=== PATIENT | female | born 1940 | race Caucasian/White ===

== ENCOUNTER 2017-04-18 08:07 | Outpatient (CLI) | payer MEDICARE, BC | END 2017-04-18 08:08 | disposition home or self-care (01) | LOC: BICMAMMO 08:07 | PROVIDERS: ATTEND Internal Medicine | DX: Z12.31 Encounter for screening mammogram for malignant neoplasm of breast (principal); Z85.3 Personal history of malignant neoplasm of breast; Z80.3 Family history of malignant neoplasm of breast | CPT/HCPCS: 77063; 77067 ==

== ENCOUNTER 2017-11-21 11:24 | Outpatient (CLI) | payer MEDICARE, BC ==
--- NOTE | 2017-11-21 13:52 | ULT ---
ULTRASOUND RENAL BILATERAL STANDARD: HISTORY: Left flank pain. COMPARISON: Ultrasound renal 08/17/2016. FINDINGS: Real-time, rosas scale color evaluation of the kidneys was performed. The right kidney measures 9.6 x 6.2 x 5 cm and the left kidney measures 8.7 x 6.6 x 4.7 cm. Prevoid urinary bladder volume is 21.4 mL. No renal mass, hydronephrosis, or abnormal calcifications. IMPRESSION: Small bilateral kidneys. No evidence for obstructive uropathy. POS: [facility]
== END 2017-11-21 11:25 | disposition home or self-care (01) ==
LOC: SCSULT 11:24
PROVIDERS: ATTEND Internal Medicine
DX: R10.9 Unspecified abdominal pain (principal); N27.1 Small kidney, bilateral
CPT/HCPCS: 76770

== ENCOUNTER 2017-11-25 09:07 | Outpatient (CLI) | payer MEDICARE, BC ==
--- NOTE | 2017-11-25 10:14 | RAD ---
THORACIC SPINE 3 VIEWS: HISTORY: Left-sided anterior and lateral pain after breast for weeks, R10.9. FINDINGS: Multilevel thoracic spine disk-osteophytosis and spondylosis. No significant malalignment. No focal bone lesion. IMPRESSION: Thoracic spondylosis. POS: [facility]
== END 2017-11-25 09:08 | disposition home or self-care (01) ==
LOC: SCSRAD 09:07
PROVIDERS: ATTEND Internal Medicine
DX: R10.9 Unspecified abdominal pain (principal); M47.894 Other spondylosis, thoracic region
CPT/HCPCS: 72072

== ENCOUNTER 2017-12-08 15:08 | Outpatient (CLI) | payer MEDICARE, BC ==
--- NOTE | 2017-12-08 17:37 | MRI ---
MRI OF THE THORACIC SPINE WITHOUT CONTRAST: 12/08/17 COMPARISON: None. HISTORY: Left sided anterior and lateral pain under the breast area for months. Osteoarthritis of the thoracic spine. TECHNIQUE: Multiplanar and multisequence MRI images were obtained of the thoracic spine without contrast. FINDINGS: The vertebral bodies demonstrate normal height and alignment without fracture or subluxation. General ized desiccation and loss of intervertebral disc space height is seen. The visualized cord demonstrat es normal signal throughout. The prevertebral and paraspinal soft tissues are unremarkable. T1-2: Unremarkable. T2-3: Unremarkable. T3-4: Unremarkable. T4-5: A small central protrusion is seen. Mild central canal stenosis. No posterior facet arthrosis. Mild bilateral neural foraminal stenosis. T5-6: A small central protrusion is seen. No posterior facet arthrosis. Mild central canal stenosis. Mild left neural foraminal stenosis. T6-7: A moderate central protrusion is seen which impresses upon the anterior aspect of the cord. Mod erate central canal stenosis. No posterior facet arthrosis. Mild bilateral neural foraminal stenosis. T7-8: A very small central protrusion is seen. No posterior facet athrosis. Mild central canal stenos is. No neural foraminal stenosis. T8-9: A very small central protrusion is seen. No posterior facet arthrosis. Mild central canal steno sis. Mild right neural foraminal stenosis. No left neural foraminal stenosis. T9-10: A very small central protrusion is seen. No posterior facet arthrosis. Mild central canal sten osis. No neural foraminal stenosis. T10-11 through T12-L1: Unremarkable. IMPRESSION: Degenerative changes of the thoracic spine as above, greatest at T6-7. POS: [facility]
== END 2017-12-08 15:09 | disposition home or self-care (01) ==
LOC: SCSMRI 15:08
PROVIDERS: ATTEND Internal Medicine
DX: M47.24 Other spondylosis with radiculopathy, thoracic region (principal)
CPT/HCPCS: 72146

== ENCOUNTER 2018-07-04 12:54 | Outpatient (CLI) | payer MEDICARE, BC ==
--- NOTE | 2018-07-04 14:57 | BD ---
DEXA bone density scan: 07/04/2018 COMPARISON: None HISTORY: Postmenopausal female undergoing screening for osteoporosis. COMPARISON: None FINDINGS: L1--bone mineral density 1.289 g/sq cm; T score 2.7 L2--bone mineral density 1.369 g/sq cm; T score 3.1 L3--bone mineral density 1.392 g/sq cm; T score 2.8 L4--bone mineral density 1.259 g/sq cm; T score 2.1 Total L1-L4--bone mineral density 1.332 g/sq cm; T score 2.6 Left femoral neck--bone mineral density0.873 T score 0.2 Total proximal left femur--bone mineral density1.269 T score 2.7 FRAX - WHO fracture risk assessment tool is not reported as all T-Scores are at or above -1.0. IMPRESSION: Normal bone mineral density exam. Transcribed Date/Time: 07/04/2018 3:38 PM
--- NOTE | 2018-07-04 15:19 | MMO ---
Bilateral MAMMO Bilat Screen [facility]. CLINICAL HISTORY: Patient is 77 years old and is seen for screening. The patient has the following family history of breast cancer: mother, at age 50. 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 The patient has a history of left Lumpectomy in April, - malignant. VIEWS: The views performed were: bilateral craniocaudal with tomosynthesis; bilateral mediolateral oblique with tomosynthesis; and left craniocaudal. FILMS COMPARED: The present examination has been compared to prior imaging studies performed at [facility] on 08/12/2014, 02/21/2015, 04/16/2016 and 04/18/2017. MAMMOGRAM FINDINGS: There are scattered fibroglandular densities. Left breast: No suspicious mass or calcifications. Stable post treastment change. Right breast: There are no suspicious masses, calcifications or areas of architectural distortion. There are benign appearing calcifications in the right breast. There are no suspicious masses, suspicious calcifications, or new areas of architectural distortion. IMPRESSION: THERE IS NO MAMMOGRAPHIC EVIDENCE OF MALIGNANCY. A ROUTINE FOLLOW-UP MAMMOGRAM IN 1 YEAR IS RECOMMENDED. THE RESULTS OF THIS EXAM WERE SENT TO THE PATIENT. ACR BI-RADS Category 2 - Benign finding MAMMOGRAPHY NOTE: 1. A negative mammogram report should not delay a biopsy if a dominant of clinically suspicious mass is present. 2. Approximately 10% to 15% of breast cancers are not detected by mammography. 3. Adenosis and dense breasts may obscure an underlying neoplasm.
== END 2018-07-04 12:55 | disposition home or self-care (01) ==
LOC: BICMAMMO 12:54
PROVIDERS: ATTEND Internal Medicine
DX: Z13.31 Encounter for screening for depression (principal); Z13.820 Encounter for screening for osteoporosis; Z78.0 Asymptomatic menopausal state; Z80.3 Family history of malignant neoplasm of breast; Z85.3 Personal history of malignant neoplasm of breast; Z98.890 Other specified postprocedural states
CPT/HCPCS: 77063; 77067; 77080

== ENCOUNTER 2019-02-01 07:57 | Outpatient (CLI) | payer MEDICARE, BC ==
--- NOTE | 2019-02-01 08:26 | ULT ---
Abdominal Ultrasound: Multiple grayscale images of right upper quadrant obtained according to protocol. INDICATION: Pain FINDINGS: Liver: Normal Gallbladder: Cholelithiasis. Gallbladder wall: Normal. Foss's Sign: Negative Common bile duct is normal. Ascites: None Spleen: Unremarkable. Pancreas: Partially obscured by bowel content, limiting assessment. Kidneys: No acute abnormalities. Slight asymmetry of renal sizes, right renal leak documented at 11.2 cm, left renal length 9 cm. Aorta/IVC: No acute process. IMPRESSION: Cholelithiasis. No sonographic evidence of acute cholecystitis
== END 2019-02-01 07:58 | disposition home or self-care (01) ==
LOC: SCSULT 07:57 → BICULT 07:58
PROVIDERS: ATTEND Internal Medicine
DX: R11.11 Vomiting without nausea (principal); K80.20 Calculus of gallbladder without cholecystitis without obstruction
CPT/HCPCS: 93975

== ENCOUNTER 2019-07-19 08:19 | Outpatient (CLI) | payer MEDICARE, BC ==
--- NOTE | 2019-07-19 10:58 | MMO ---
Bilateral MAMMO Bilat Screen [facility]. CLINICAL HISTORY: Patient is 78 years old and is seen for screening. The patient has the following family history of breast cancer: mother, at age 50. The patient has a history of Excisional biopsy procedure revealed invasive ductal left breast carcinoma in April,; Stereotactic core biopsy procedure revealed invasive ductal left breast carcinoma in March, and malignant (generic) in the left breast in 2008. The patient has a history of left Lumpectomy in April, - malignant. VIEWS: The views performed were: bilateral craniocaudal with tomosynthesis and bilateral mediolateral oblique with tomosynthesis. FILMS COMPARED: The present examination has been compared to prior imaging studies performed at [facility] on 02/21/2015, 04/16/2016, 04/18/2017 and 07/04/2018. This study has been interpreted with the assistance of computer-aided detection. MAMMOGRAM FINDINGS: There are scattered fibroglandular densities. There are stable post operative changes seen in the left breast. There are no suspicious masses, suspicious calcifications, or new areas of architectural distortion. IMPRESSION: THERE IS NO MAMMOGRAPHIC EVIDENCE OF MALIGNANCY. A ROUTINE FOLLOW-UP MAMMOGRAM IN 1 YEAR IS RECOMMENDED. THE RESULTS OF THIS EXAM WERE SENT TO THE PATIENT. ACR BI-RADS Category 2 - Benign finding MAMMOGRAPHY NOTE: 1. A negative mammogram report should not delay a biopsy if a dominant of clinically suspicious mass is present. 2. Approximately 10% to 15% of breast cancers are not detected by mammography. 3. Adenosis and dense breasts may obscure an underlying neoplasm. Reported by: DELMY RAMÍREZ MD Electonically Signed: [id number]
== END 2019-07-19 08:20 | disposition home or self-care (01) ==
LOC: BICMAMMO 08:19
PROVIDERS: ATTEND Internal Medicine
DX: Z12.31 Encounter for screening mammogram for malignant neoplasm of breast (principal); Z80.3 Family history of malignant neoplasm of breast; Z85.3 Personal history of malignant neoplasm of breast; Z98.890 Other specified postprocedural states
CPT/HCPCS: 77063; 77067

== ENCOUNTER 2020-01-16 15:45 | Outpatient (CLI) | payer MEDICARE, BC ==
--- NOTE | 2020-01-17 09:04 | ULT ---
THYROID NODULE NOTED ON CAROTID ULTRASOUND: Real-time imaging of the right and left lobes of the gland were performed. The exam was technically difficult. The right lobe measures 2.1 x 2.4 x 3.8 cm. The left lobe is 0.8 x 1.5 x 3.1 cm. In the inferior aspect of the right lobe is a 1.8 x 2.5 cm. A second smaller 1.7 cm solid nodule is seen c loser to the isthmus region. IMPRESSION: Two solid right lobe thyroid nodules. Both would correspond to TIRADS-3 lesions for which followup a t 1 year is recommended. POS: [facility]
== END 2020-01-16 15:46 | disposition home or self-care (01) ==
LOC: BICULT 15:45
PROVIDERS: ATTEND Internal Medicine Cardiovascular Disease
DX: E04.2 Nontoxic multinodular goiter (principal)
CPT/HCPCS: 76536

== ENCOUNTER 2020-05-08 09:53 | Outpatient (CLI) | payer MEDICARE, BC | END 2020-05-08 09:54 | disposition home or self-care (01) | LOC: BICULT 09:53 | PROVIDERS: ATTEND Internal Medicine | DX: R11.2 Nausea with vomiting, unspecified (principal); K82.8 Other specified diseases of gallbladder; K86.89 Other specified diseases of pancreas | CPT/HCPCS: 93975 ==

== ENCOUNTER 2020-07-31 10:56 | Outpatient (CLI) | payer MEDICARE, BC | END 2020-07-31 10:57 | disposition home or self-care (01) | LOC: BICMAMMO 10:56 | PROVIDERS: ATTEND Internal Medicine | DX: Z12.31 Encounter for screening mammogram for malignant neoplasm of breast (principal); Z80.3 Family history of malignant neoplasm of breast; Z85.3 Personal history of malignant neoplasm of breast; Z98.890 Other specified postprocedural states | CPT/HCPCS: 77063; 77067 ==

== ENCOUNTER 2020-11-21 08:06 | Outpatient (CLI) | payer MEDICARE, BC ==
[2020-11-21] MEDS ORDERED: Iopamidol 370 76% 100 ML VIAL ONE (09:36)
== END 2020-11-21 08:07 | disposition home or self-care (01) ==
LOC: CT 08:06
PROVIDERS: ATTEND Physician Assistant
DX: R59.0 Localized enlarged lymph nodes (principal); I65.23 Occlusion and stenosis of bilateral carotid arteries; M47.812 Spondylosis without myelopathy or radiculopathy, cervical region; M48.02 Spinal stenosis, cervical region; E04.2 Nontoxic multinodular goiter
CPT/HCPCS: 70491; 82565; Q9967

== ENCOUNTER 2020-12-08 14:35 | Outpatient (CLI) | payer MEDICARE, BC | END 2020-12-08 14:36 | disposition home or self-care (01) | LOC: BICULT 14:35 | PROVIDERS: ATTEND Specialist | DX: E04.2 Nontoxic multinodular goiter (principal) | CPT/HCPCS: 76536 ==

== ENCOUNTER 2021-10-16 09:32 | Outpatient (CLI) | payer MEDICARE, BC | END 2021-10-16 09:33 | disposition home or self-care (01) | LOC: BICMAMMO 09:32 | PROVIDERS: ATTEND Internal Medicine | DX: Z12.31 Encounter for screening mammogram for malignant neoplasm of breast (principal); Z80.3 Family history of malignant neoplasm of breast; Z85.3 Personal history of malignant neoplasm of breast; Z98.890 Other specified postprocedural states | CPT/HCPCS: 77063; 77067 ==

== ENCOUNTER 2022-09-15 09:07 | Outpatient (CLI) | payer MEDICARE, BC | END 2022-09-15 09:08 | disposition home or self-care (01) | LOC: SCSMRI 09:07 | PROVIDERS: ATTEND Physician Assistant Medical | DX: D49.0 Neoplasm of unspecified behavior of digestive system (principal); K86.2 Cyst of pancreas | CPT/HCPCS: 74183 ==

== ENCOUNTER 2022-09-15 20:04 | Emergency (ER) | payer MEDICARE, BC | END 2022-09-15 21:10 | disposition home or self-care (01) | LOC: ERS 20:04 | DX: E11.65 Type 2 diabetes mellitus with hyperglycemia (principal) | CPT/HCPCS: 36416; 99284 ==

== ENCOUNTER 2022-12-09 12:33 | Outpatient (CLI) | payer MEDICARE, BC | END 2022-12-09 12:34 | disposition home or self-care (01) | LOC: CT 12:33 | PROVIDERS: ATTEND Internal Medicine Hematology & Oncology | DX: K59.00 Constipation, unspecified (principal); R10.9 Unspecified abdominal pain; C50.912 Malignant neoplasm of unspecified site of left female breast; D69.6 Thrombocytopenia, unspecified; K57.30 Diverticulosis of large intestine without perforation or abscess without bleeding; E65 Localized adiposity | CPT/HCPCS: 74176 ==

== ENCOUNTER 2022-12-28 11:31 | Outpatient (CLI) | payer MEDICARE, BC | END 2022-12-28 11:32 | disposition home or self-care (01) | LOC: BICMAMMO 11:31 | PROVIDERS: ATTEND Internal Medicine | DX: Z12.31 Encounter for screening mammogram for malignant neoplasm of breast (principal); Z80.3 Family history of malignant neoplasm of breast; Z85.3 Personal history of malignant neoplasm of breast; Z98.890 Other specified postprocedural states | CPT/HCPCS: 77063; 77067 ==

== ENCOUNTER 2023-02-28 14:12 | Outpatient (CLI) | payer MEDICARE, BC | END 2023-02-28 14:13 | disposition home or self-care (01) | LOC: BICMAMMO 14:12 | PROVIDERS: ATTEND Internal Medicine | DX: Z13.820 Encounter for screening for osteoporosis (principal); Z78.0 Asymptomatic menopausal state | CPT/HCPCS: 77080 ==

== ENCOUNTER 2023-12-30 08:48 | Outpatient (CLI) | payer MEDICARE, BC | END 2023-12-30 08:49 | disposition home or self-care (01) | LOC: BICMAMMO 08:48 | PROVIDERS: ATTEND Internal Medicine | DX: Z12.31 Encounter for screening mammogram for malignant neoplasm of breast (principal); Z85.3 Personal history of malignant neoplasm of breast; Z80.3 Family history of malignant neoplasm of breast; Z98.890 Other specified postprocedural states | CPT/HCPCS: 77066; G0279 ==

== ENCOUNTER 2024-12-31 08:10 | Outpatient (CLI) | payer MEDICARE, BC | END 2024-12-31 08:11 | disposition home or self-care (01) | LOC: BICMAMMO 08:10 | PROVIDERS: ATTEND Internal Medicine | DX: Z12.31 Encounter for screening mammogram for malignant neoplasm of breast (principal); Z78.0 Asymptomatic menopausal state; Z80.3 Family history of malignant neoplasm of breast; Z85.3 Personal history of malignant neoplasm of breast; Z98.890 Other specified postprocedural states | CPT/HCPCS: 77063; 77067; 77080 ==